=== PATIENT | female | born 1980 | race Caucasian/White ===

== ENCOUNTER 2018-10-21 08:09 | Emergency (ER) | payer OTHER ==
[~2018-10-21] VITALS: Ht 152.4 cm; Wt 66.4 kg
[2018-10-21 08:12] VITALS: BP 127/47; Ht 152.4 cm; Wt 66.4 kg
== END 2018-10-21 09:35 | disposition home or self-care (01) ==
LOC: ED 08:09
DX: R51 Headache (principal); R22.0 Localized swelling, mass and lump, head; G51.0 Bell's palsy

== ENCOUNTER 2019-08-13 08:47 | Emergency (ER) | payer OTHER ==
[~2019-08-13] VITALS: Ht 152.4 cm; Wt 64.0 kg
[2019-08-13 08:53] VITALS: Ht 152.4 cm; Wt 64.0 kg
[2019-08-13 09:08] VITALS: BP 127/91
== END 2019-08-13 09:08 | disposition home or self-care (01) ==
LOC: ED 08:47
DX: H60.92 Unspecified otitis externa, left ear (principal)